=== PATIENT | male | born 1945 | race Asian ===

== ENCOUNTER 2023-06-24 06:59 | Inpatient (IN) | payer OTHER, BC ==
[2023-06-22 12:34] VITALS: BMI 24.2
[2023-06-24] MEDS ORDERED: TRANEXAMIC ACID 1000 MG/10 ML VIAL IVPUSH ONE (07:00)
[2023-06-24] MEDS ORDERED: CEFAZOLIN 2 GM in DEXTROSE 5%-WATER - 50 ML IVPB ONE (07:00)
[2023-06-24] MEDS ORDERED: VANCOMYCIN 1,000 MG VIAL (RESTRICTED TO ID ONLY) ONE ×2 (08:16→10:24)
[2023-06-24] MEDS ORDERED: MIDAZOLAM HCL 2 MG/2 ML SINGLE DOSE VIAL ONE (09:36)
[2023-06-24] MEDS ORDERED: DEXAMETHASONE SOD PHOSPHATE/PF 10 MG/ML SDV ONE (09:36)
[2023-06-24] MEDS ORDERED: ROPIVACAINE HCL 0.5% 30ML VIAL ONE (09:37)
[2023-06-24] MEDS ORDERED: BUPIVACAINE HCL/PF 0.5% (5MG/ML) 10 ML VIAL ONE (09:37)
[2023-06-24] MEDS ORDERED: PROPOFOL 20 ML ONE ×2 (10:10→12:48)
[2023-06-24] MEDS ORDERED: SUCCINYLCHOLINE CHLORIDE 200 MG/10 ML SYRINGE ONE (10:10)
[2023-06-24] MEDS ORDERED: ceFAZolin SODIUM 1 GM VIAL ONE (10:24)
[2023-06-24] MEDS ORDERED: ONDANSETRON 4 MG/2 ML VIAL ONE (10:30)
[2023-06-24] MEDS ORDERED: DEXAMETHASONE SOD PHOSPHATE 4 MG/1 ML VIAL ONE (10:30)
[2023-06-24] MEDS ORDERED: ePHEDrine SULFATE 50 MG/1 ML AMPULE ONE (10:46)
[2023-06-24] MEDS ORDERED: BUPIVICAINE 0.25%/MORPH PF/KETOROLAC - 51ML DISP.SYRINGE IA ONE ×2 (11:43→13:40)
[2023-06-24] MEDS ORDERED: TRANEXAMIC ACID 1000 MG/10 ML VIAL ONE (14:02)
[2023-06-24] MEDS ORDERED: MAGNESIUM HYDROX 2400MG/30ML ORAL SUSPENSION 30 ML CUP PO PRN (14:36)
[2023-06-24] MEDS ORDERED: ONDANSETRON 4 MG/2 ML VIAL IVPUSH PRN ×2 (14:36→14:39)
[2023-06-24] MEDS ORDERED: MAG HYDROX/AL HYDROX/SIMETH 30 ML UNIT-DOSE CUP PO PRN (14:36)
[2023-06-24] MEDS ORDERED: oxyCODONE HCL 5 MG TABLET PO PRN ×2 (14:40)
[2023-06-24] MEDS ORDERED: ACETAMINOPHEN 1000 MG/100 ML BAG IVPB ONE (14:40)
[2023-06-24] MEDS: KETOROLAC TROMETHAMINE 30 MG/1 ML VIAL IVPUSH SCH ×2 (14:43→21:12)
[2023-06-24] MEDS ORDERED: LACTATED RINGERS SOLUTION 1,000 ML IV SCH (14:45)
[2023-06-24 16:49] VITALS: RESP 18
[2023-06-24] MEDS: ACETAMINOPHEN 500 MG TABLET (FP) PO SCH (21:10)
[2023-06-24] MEDS: CEFAZOLIN SODIUM 2 GM in DEXTROSE 5%-WATER 100 ML IVPB SCH (21:10)
[2023-06-24] MEDS: LOSARTAN POTASSIUM 50 MG TABLET PO SCH (21:14)
[2023-06-24] MEDS: SENNOSIDES/DOCUSATE COMBO (SENNA PLUS) TABLET (UD) PO SCH (21:14)
[2023-06-25] MEDS: ACETAMINOPHEN 500 MG TABLET (FP) PO SCH ×2 (01:59→10:13)
[2023-06-25] MEDS: CEFAZOLIN SODIUM 2 GM in DEXTROSE 5%-WATER 100 ML IVPB SCH (06:27)
[2023-06-25 08:13] LABS: HEMATOCRIT 31.6 % (35.4-49); HEMOGLOBIN 10.1 G/dL (11.7-16.9); MCHC 31.9 g/dl (32.0-35.9); MEAN CELL VOLUME 93.9 fl (80-96); MEAN PLT VOLUME 7.9 fl (7.5-11.1); RBC 3.36 10^6/uL (4.00-5.60); RDW 13.9 % (11.9-15.9); WHITE BLOOD COUNT 15.5 10^3/uL (4.0-10.8)
[2023-06-25 08:37] LABS: BLOOD UREA NITROGEN 28.2 mg/dl (7-18); CALCIUM 8.6 mg/dl (8.5-10.1); CREATININE 1.2 mg/dl (0.6-1.3); POTASSIUM 4.9 mmol/L (3.5-5.1)
[2023-06-25 09:05] VITALS: BP 120/57; PULSE 71; TEMP 97.6
[2023-06-25] MEDS ORDERED: PANTOPRAZOLE 40 MG TABLET PO SCH (10:00)
[2023-06-25] MEDS ORDERED: ENOXAPARIN NA (PORCINE) 40 MG/0.4 ML DISP.SYRIN SQ SCH (10:00)
[2023-06-25] MEDS ORDERED: amLODIPine BESYLATE 5 MG TABLET (FP) PO SCH (10:00)
[2023-06-25] MEDS ORDERED: MULTIVITAMINS (DAILY MVI) TABLET (FP) PO SCH (10:00)
[2023-06-25] MEDS: SENNOSIDES/DOCUSATE COMBO (SENNA PLUS) TABLET (UD) PO SCH (10:12)
[2023-06-25] MEDS: LOSARTAN POTASSIUM 50 MG TABLET PO SCH (10:12)
[2023-06-25 10:57] LABS: HEMATOCRIT 29.5 % (35.4-49); HEMOGLOBIN 9.7 G/dL (11.7-16.9); MCH 30.7 pg (25.7-33.7); MCHC 32.7 g/dl (32.0-35.9); MEAN CELL VOLUME 93.7 fl (80-96); MEAN PLT VOLUME 7.6 fl (7.5-11.1); PLATELET COUNT 199.2 10^3/uL (134-434); RBC 3.15 10^6/uL (4.00-5.60); WHITE BLOOD COUNT 14.4 10^3/uL (4.0-10.8)
[2023-06-25 11:04] LABS: PLATELET ESTIMATE ADEQUATE
== END 2023-06-25 13:37 | disposition home or self-care (01) | DRG 470 ==
LOC: UNDOADMIN 06:59 → FM/S 06:59
PROC: 8E0Y0CZ Robotic Assisted Procedure of Lower Extremity, Open Approach (ICD-10-PCS; 2023-06-24)
PROC: 0SRB04A Replacement of Left Hip Joint with Ceramic on Polyethylene Synthetic Substitute, Uncemented, Open Approach (ICD-10-PCS; principal; 2023-06-24 11:06)
DX: M16.12 Unilateral primary osteoarthritis, left hip (principal); I10 Essential (primary) hypertension; E78.5 Hyperlipidemia, unspecified
CPT/HCPCS: 36415; 73502-TC-LT-FY; 80048; 85027; 86850; 86900; 86901; 88305-TC; 88311-TC; 94760; 97116-GP; 97162-GP; C1776